=== PATIENT | female | born 1945 | race Caucasian/White ===

== ENCOUNTER 2018-06-04 14:13 | Inpatient (IN) | payer MEDICARE, OTHER ==
[~2018-06-04 14:13] MED LIST: ISOVUE-370 76%-LOCM 1 ML ONE
[2018-06-04 15:33] LABS: #Basophils 0.1 thou/uL (0.0-0.2); #Eosinphils 0.3 thou/uL (0.0-0.7); #Lymphocytes 1.2 thou/uL (1.20-3.40); #Monocytes 0.5 thou/uL (0.11-0.59); %Eosinophils 5.3 % (0.0-10.0); %Lymphocytes 24.5 % (21.0-51.0); %Monocytes 9.6 % (0.0-10.0); %Neutrophils 59.6 % (42.0-75.0); Hemoglobin 15.3 g/dL (12.0-16.0); Mean Corpuscular HGB CONC 35.1 g/dL (32.0-36.0); Mean Corpuscular Hemoglobin 32.4 pg (27.0-31.0); Mean Corpuscular Volume 92.2 fL (78.0-98.0); Mean Platelet Volume 6.6 fL (7.4-10.4); Platelet Count 355 thou/uL (130-400); RBC Distribution Width 12.4 % (11.5-14.5); Red Blood Cell (RBC) Count 4.71 mill/uL (4.20-5.40)
[2018-06-04 15:55] LABS: ALT (SGPT) 21 U/L (8-55); AST (SGOT) 24 U/L (5-34); Albumin 4.2 g/dL (3.4-4.8); Alkaline Phosphatase 50 U/L (40-150); Anion Gap 15 mmol/L (10-20); BUN (Urea Nitrogen) 19 mg/dL (9.8-20.1); Bilirubin, Total 0.3 mg/dL (0.2-1.2); Calc. Creatinine Clearance 0 mL/min (70-130); Carbon Dioxide 27 mmol/L (23-31); Chloride 104 mmol/L (98-107); Estimated GFR-MDRD 69; Globulin 3.1 g/dL (2.4-3.5); Glucose 90 mg/dL (83-110); Potassium 3.6 mmol/L (3.5-5.1); Protein, Total 7.3 g/dL (6.0-8.3); Sodium 142 mmol/L (136-145)
--- NOTE | 2018-06-04 15:55 | RAD ---
LEFT KNEE FOUR VIEWS: HISTORY: Pain. COMPARISON: None. FINDINGS: No fracture. No malalignment. There is narrowing of the lateral compartment and large osteophyte fo rmation. Small joint effusion. IMPRESSION: Moderate to severe lateral compartment degenerative disease. POS: [facility]
--- NOTE | 2018-06-04 15:58 | CT ---
CT BRAIN WITHOUT CONTRAST: 06/04/18 HISTORY: Left leg numbness. FINDINGS: There are changes of chronic small vessel ischemic disease in the periventricular white matter. No ev idence of acute infarct, hemorrhage, midline shift or abnormal extra-axial fluid collections are seen . the ventricular size is appropriate and the basilar cisterns patent. The bony calvarium is intact. There is mild mucosal disease in the right posterior ethmoid air cells. IMPRESSION: No CT evidence of acute intracranial process. POS: [facility]
--- NOTE | 2018-06-04 17:50 | CT ---
CT ARTERIOGRAM LEFT KNEE WITH IV CONTRAST AND 3D MIP IMAGIN06/04/18 HISTORY: Left leg pain and numbness. FINDINGS: CT arteriogram exam was performed from the level of the mid thigh to the mid marquez. Good contrast flow was demonstrated with in the popliteal artery to the trifurcation and into the proximal portions of the lower leg arteries. No evidence of stenosis, thrombus, embolus, or aneurysm. Moderate degenerativ e changes of the knee are apparent. Just posterior to the posterior horn lateral meniscus, is a smoothly marginated vertically oriented o earnestine ossification measuring up to 0.7 cm in greatest length. IMPRESSION: Normal CTA appearance of the left popliteal artery without aneurysm or thrombus. Degenerative changes left knee with intracapsular loose body posterior aspect of the lateral joint co mpartment. POS: [facility]
[2018-06-04] MEDS ORDERED: Nitroglycerin 2% Ointment 1 INCH/1 GM Packet ONE (18:04)
[2018-06-04] MEDS ORDERED: cloNIDine 0.1 MG TAB ONE (18:50)
[2018-06-04 21:55] VITALS: BMI 27.6
[2018-06-04] MEDS ORDERED: HYDROcodone/Acetaminophen 5/325 mg Tablet PO PRN ×2 (22:46)
[2018-06-04] MEDS ORDERED: Ondansetron HCl/PF 4 MG/2 ML Vial IVP PRN (22:46)
[2018-06-04] MEDS ORDERED: Acetaminophen 325 MG TAB PO PRN (22:46)
[2018-06-04] MEDS ORDERED: Ondansetron ODT 4 MG TAB SL PRN (22:46)
--- NOTE | 2018-06-05 09:35 | MRI ---
MRI BRAIN WITHOUT CONTRAST: History: CVA. Left leg tingling and inability to move left foot. Technique: Multiplanar, multisequence noncontrast enhanced MRI of the brain obtained. FINDINGS/IMPRESSION: Images demonstrate diffuse cortical atrophy and deep white matter ischemic changes. Images demonstrate an area of acute stroke with diffusion restrictions seen in the right posterior lora perior frontal gyrus extending into the medial aspect of the right precentral sulcus. This is compati ble with a small area of right posterior frontal stroke. No other acute abnormalities seen. POS: [facility]
[2018-06-05] MEDS ORDERED: Aspirin 325 MG TAB PO SCH (11:00)
--- NOTE | 2018-06-05 12:07 | HP ---
CHIEF COMPLAINT: Left leg numbness. HISTORY OF PRESENT ILLNESS: Ms. Valadez is a 73-year-old female with past medical history of hypertension, hyperlipidemia, who came because of left leg numbness and on Monday, that was about 2 days ago, the patient woke up in the early interventionist around 3:00 a.m. and found her weakness in the left hand. She was not able to hold a cup because she dropped the cup and she could not pick it up due to lack of coordination. She wanted to go and lie down on the couch, but before she could reach the couch, she slumped to the floor and lay on the floor for a few hours before she went onto the couch. Since that time the patient has been having left leg numbness, tingling and unable to move the toes of the left foot. So the patient decided to come to the hospital. In the ER, the patient was evaluated, had a normal CT scan of the brain. The patient's blood pressure was elevated. She was given clonidine. So in view of the left-sided weakness as well as left leg numbness the patient is admitted to rule out CVA. Currently, the patient does not have left hand weakness though she still has left leg numbness. PAST MEDICAL HISTORY: 1. Hypertension. 2. Hormone replacement therapy. 3. History of sleep apnea. PAST SURGICAL HISTORY: 1. Status post hysterectomy. 2. Status post appendectomy. 3. Status post dilatation of esophagus. CURRENT MEDICATIONS: Patient is on metoprolol 50 mg b.i.d., Estradiol 2 mg daily. amioloride with hydrochlorothiazide 5/50 daily, potassium KCl 20 mEq daily. Also uses an inhaler, ProAir for shortness of breath and she uses a nasal spray , Flonase. REVIEW OF SYSTEMS: CARDIOVASCULAR: No chest pain or shortness of breath. RESPIRATORY: No fever or cough. GASTROINTESTINAL: No nausea or vomiting. No abdominal pain. GENITOURINARY: No dysuria or hematuria. CENTRAL NERVOUS SYSTEM: The patient has left leg numbness. PHYSICAL EXAMINATION: GENERAL: The patient is alert, awake, oriented x3. VITAL SIGNS: Temperature 98, pulse 80, respirations 20, blood pressure initially 180/90. HEENT: Head is normocephalic and atraumatic. Pupils are equal and reactive. Nasopharynx is pale and dry. Hard and soft palate, no lesions. SKIN: Turgor decreased. NECK: Supple. No jugular venous distention. LUNGS: Clear to auscultation. No rales, no rhonchi. ABDOMEN: Soft, no distention, no tenderness. No organomegaly. Bowel sounds heard. RECTAL: Deferred. DIGITAL PROJECT COORDINATOR: The patient is alert, awake, oriented x3. Deep tendon reflexes 2+ bilaterally. Plantar downgoing. Sensory is decreased below the left knee. LABORATORY AND X-RAY FINDINGS: CBC shows WBC 5, hemoglobin 15, hematocrit 43, platelets 355. Metabolic panel; sodium 140, potassium 3.6, chloride 104, CO2 of 25, urea nitrogen 19, creatinine 0.8, glucose 90. EKG shows normal sinus rhythm, no acute ST-T wave changes seen. CT scan of the brain; no CT evidence of acute intracranial process. Knee x-ray; moderate to severe lateral compartment degenerative joint disease seen. CTA of the lower extremity showed normal CT appearance of the left popliteal artery. ASSESSMENT: 1. Left-sided weakness and left leg numbness, rule out cerebrovascular accident. 2. Hypertension, uncontrolled. 3. Hormone replacement. 4. History of chronic rhinitis. PLAN: 1. Vital signs q.4 hours. 2. Activity as tolerated. 3. Allergies: No known drug allergies. 4. Hep-Lock. 5. Aspirin 325 mg daily. 6. Continue home medications. 7. Clonidine 0.1 q.6h. p.r.n. for systolic above 180. 8. We will obtain MRI of the brain with and without contrast. [facility]
[2018-06-05] MEDS ORDERED: Multivitamin W/ Minerals 1 TAB PO SCH (12:30)
[2018-06-05] MEDS ORDERED: Hydrochlorothiazide 25 MG TAB PO SCH (12:30)
[2018-06-05] MEDS ORDERED: Potassium Chloride 20 MEQ TAB PO SCH (12:30)
[2018-06-05] MEDS ORDERED: Estradiol 1 MG TAB PO SCH (13:00)
--- NOTE | 2018-06-05 14:39 | ULT ---
BILATERAL CAROTID DUPLEX ULTRASOUND: History CVA. TECHNIQUE: Wayne scale ultrasound with color flow and spectral Doppler imaging of the extracranial carotid artery systems was performed bilaterally. FINDINGS: There is plaque formation predominantly on the right. The peak systolic velocity in the right ICA measures 68 cm/s with an end-diastolic velocity of 17 cm/ s and a systolic ratio of 0.67. The peak systolic velocity in the left ICA measures 61 cm/s with an end-diastolic velocity of 13 cm/s and a systolic ratio of 0.54. Flow in both vertebral arteries remains antegrade. IMPRESSION: No evidence of hemodynamically significant stenosis. POS: [facility]
[2018-06-05] MEDS ORDERED: Aspirin 81 mg Enteric Coated Tablet PO SCH (18:15)
[2018-06-05] MEDS ORDERED: Acetaminophen 500 MG TAB PO PRN (18:51)
[2018-06-05] MEDS ORDERED: Loperamide HCl 2 MG CAP PO PRN (20:11)
--- NOTE | 2018-06-05 21:19 | CON ---
DATE OF CONSULTATION: 06/05/2018 NEUROLOGY CONSULTATION CONSULTING PHYSICIAN: Dr. Webster. IMPRESSION: 1. Right frontal stroke. 2. Hypertension. PLAN: 1. Aspirin 81 mg per day. 2. Statin of your choice. 3. Patient will be discharged home tomorrow. Ms. Valadez is a 73-year-old woman who lives alone in her own home. She developed acute left-side d weakness 4 days ago. She did not seek medical care acutely. She worked herself around the house, but had difficulty maintaining her balance. She subsequently decided to seek medical care and was br ought in. Her MRI of the brain revealed an acute right frontal stroke. Laboratory studies were unre markable. A carotid ultrasound does not show any stenosis. Echocardiogram is pending. She does not have any cardiac history. PAST MEDICAL HISTORY: Hypertension. ALLERGIES: As per chart. SOCIAL HISTORY: No tobacco or alcohol use. FAMILY HISTORY: Noncontributory. REVIEW OF SYSTEMS: No complaint of headache, nausea, vomiting, vertigo, chest pain, shortness of manny ath, or incontinence. PHYSICAL EXAMINATION: GENERAL: She is a well-nourished elderly lady in no distress. VITAL SIGNS: Stable. She is afebrile. HEENT: Pupils equal and reactive. Conjunctivae are clear. Oropharynx clear. NECK: Supple. EXTREMITIES: No cyanosis, clubbing or edema. NEUROLOGIC: She is alert and cooperative. Her speech is fluent and clear. Cranial nerves II-XII ar e intact. Motor exam showed only subtle weakness in the left lower extremity. She can walk independ ently with a slightly widened based gait and a limp. Sensation was intact to light touch. No abnorm al movements were seen. IMAGING DATA: EKG shows sinus rhythm. SUMMARY: A 73-year-old woman with a thrombotic stroke in the right frontal region with resolving lef t-sided weakness. We can proceed with preventative therapy and she will likely be doing well enough to go home for independent living.
[2018-06-06 05:53] LABS: Cardiac Risk 3.1 (Less than 4.5)
[2018-06-06] MEDS: Multivitamin W/ Minerals 1 TAB PO SCH (08:59)
[2018-06-06] MEDS: Potassium Chloride 20 MEQ TAB PO SCH (08:59)
[2018-06-06] MEDS ORDERED: Aspirin 325 MG TAB PO SCH (09:00)
[2018-06-06] MEDS ORDERED: Estradiol 1 MG TAB PO SCH (09:00)
[2018-06-06] MEDS: Aspirin 81 mg Enteric Coated Tablet PO SCH (09:01)
[2018-06-06] MEDS: Hydrochlorothiazide 25 MG TAB PO SCH ×3 (09:05→11:48)
[2018-06-06] MEDS: Acetaminophen 325 MG TAB PO PRN (23:05)
[2018-06-07] MEDS: Hydrochlorothiazide 25 MG TAB PO SCH (08:29)
[2018-06-07] MEDS: Multivitamin W/ Minerals 1 TAB PO SCH (08:29)
[2018-06-07] MEDS: Estradiol 1 MG TAB PO SCH (08:30)
[2018-06-07] MEDS: Potassium Chloride 20 MEQ TAB PO SCH (08:30)
[2018-06-07] MEDS: Aspirin 81 mg Enteric Coated Tablet PO SCH (08:30)
[2018-06-07] MEDS ORDERED: Lisinopril 10 MG TAB PO SCH (13:45)
[2018-06-07] MEDS ORDERED: Amlodipine 5 MG TAB PO SCH (15:00)
[2018-06-07] MEDS ORDERED: cloNIDine 0.1 MG TAB PO PRN (15:17)
[2018-06-07] MEDS ORDERED: Atorvastatin Calcium 20 MG TAB PO SCH (23:15)
[2018-06-08] MEDS: Acetaminophen 325 MG TAB PO PRN (03:58)
[2018-06-08] MEDS ORDERED: Lisinopril 10 MG TAB PO SCH (09:00)
[2018-06-08] MEDS ORDERED: Amlodipine 5 MG TAB PO SCH (09:00)
[2018-06-08] MEDS: Hydrochlorothiazide 25 MG TAB PO SCH (09:54)
[2018-06-08] MEDS: Estradiol 1 MG TAB PO SCH (09:54)
[2018-06-08] MEDS: Multivitamin W/ Minerals 1 TAB PO SCH (09:55)
[2018-06-08] MEDS: Potassium Chloride 20 MEQ TAB PO SCH (09:55)
[2018-06-08] MEDS: Aspirin 81 mg Enteric Coated Tablet PO SCH (09:55)
[2018-06-08 10:50] VITALS: BP 123/67; TEMP 97.5
[2018-06-08] MEDS ORDERED: Atorvastatin Calcium 20 MG TAB PO SCH (21:00)
--- NOTE | 2018-06-09 11:40 | EKG ---
Test Reason : WEAKNESS Blood Pressure : / mmHG Vent. Rate : 080 BPM Atrial Rate : 080 BPM P-R Int : 192 ms QRS Dur : 072 ms QT Int : 372 ms P-R-T Axes : 076 001 018 degrees QTc Int : 429 ms Normal sinus rhythm with sinus arrhythmia Normal ECG Confirmed by AMAN SANCHES DO ([id number]), website/blog editor AVEL LEE ([id number]) on 06/09/2018 11:39:52 AM Referred By: PEGGY SANCHES Confirmed By:AMAN SANCHES DO
--- NOTE | 2018-06-11 10:53 | DIS ---
DATE OF ADMISSION: 06/04/2018 DATE OF DISCHARGE: 06/08/2018 ADMITTING DIAGNOSES: 1. Left-sided weakness and left leg numbness, rule out cerebrovascular accident. 2. Hypertension, uncontrolled. 3. Hormone replacement. 4. History of chronic rhinitis. FINAL DIAGNOSES: 1. Left-sided weakness secondary to right frontal stroke, improving. 2. Hypertension, uncontrolled, improved. 3. Hormone replacement therapy. BRIEF SUMMARY OF HOSPITAL COURSE: Ms. Valadez is a 73-year-old female admitted because of left-sided weakness and numbness. Initial CT scan of the brain did not show any acute infarct. The patient admitted to rule out CVA. An MRI of the brain was done, which showed right frontal stroke. The patient consulted by stroke team and Neurology has seen the patient. The patient was seen by neurology and his impression was pt has right frontal stroke suggested statin and aspirin. An echocardiogram was done, which showed normal LV function with ejection fraction of 55%. patient was started on physical therapy. She is able to ambulate with walker. Her blood pressure was uncontrolled, so her medications were adjusted. She was started on amlodipine 5 mg daily, after which her blood pressure was controlled. The patient was also started on statin, Lipitor 20 mg daily. In view of improvement, patient is being discharged to home. At the time of discharge, she was stable. Her vital signs were stable. Lungs were clear. Heart sounds are regular. Abdomen is soft, nontender. Bowel sounds present. DISCHARGE MEDICATIONS: Include amiloride with hydrochlorothiazide 5/50 daily, KCl 20 mEq daily, estradiol 2 mg daily, metoprolol 100 mg daily, multivitamin daily, amlodipine 5 mg daily, aspirin 81 mg daily, Lipitor 20 mg daily. DISCHARGE INSTRUCTIONS: The patient will have Home Health to help her to do home health PT. FOLLOWUP: The patient will come for followup in 2 weeks. [facility]
== END 2018-06-08 17:11 | disposition home health service (06) | DRG 65 ==
LOC: ERS 14:13 → 2SE 19:38 → OBSVTOIN 19:38
PROVIDERS: ADMIT Internal Medicine; ATTEND Internal Medicine
DX: I63.30 Cerebral infarction due to thrombosis of unspecified cerebral artery (principal); G81.94 Hemiplegia, unspecified affecting left nondominant side; R29.702 NIHSS score 2; M17.12 Unilateral primary osteoarthritis, left knee; I10 Essential (primary) hypertension; J31.0 Chronic rhinitis; E78.5 Hyperlipidemia, unspecified; Z79.890 Hormone replacement therapy
CPT/HCPCS: 36415; 70450; 70551; 80053; 80061; 85025; 93005; 93306; 93880; A4216; G8978-GP-CJ; G8979-GP-CJ; G8980-GP-CJ; G8987-GO-CI; G8988-GO-CI; G8989-GO-CI; G8996-GN-CI; G8997-GN-CI

== ENCOUNTER 2023-11-09 08:11 | Inpatient (IN) | payer MEDICARE, OTHER ==
[2023-11-09] MEDS ORDERED: Acetaminophen 500 MG TAB ONE (08:38)
[2023-11-09] MEDS ORDERED: Acetaminophen 325 MG TAB ONE (09:24)
[2023-11-09 10:06] LABS: #Monocytes 0.6 thou/uL (0.11-0.59); #Neutrophils 3.9 thou/uL (1.40-6.50); %Basophils 0.4 % (0.0-1.0); %Eosinophils 0.2 % (0.0-10.0); %Lymphocytes 14.2 % (21.0-51.0); %Monocytes 10.8 % (0.0-10.0); Hematocrit 35.5 % (36.0-47.0); Hemoglobin 11.5 g/dL (12.0-16.0); Mean Corpuscular HGB CONC 32.4 g/dL (32.0-36.0); Mean Corpuscular Hemoglobin 27.4 pg (27.0-31.0); Mean Corpuscular Volume 84.5 fl (78.0-98.0); Mean Platelet Volume 10.2 fL (7.4-10.4); Platelet Count 511 10x3/uL (130-400); RBC Distribution Width 16.7 % (11.5-14.5); White Blood Cell (WBC) Count 5.3 10x3/uL (4.8-10.8)
[2023-11-09 10:46] LABS: ALT (SGPT) 8 U/L (8-55); AST (SGOT) 20 U/L (5-34); Albumin 3.7 g/dL (3.4-4.8); Alkaline Phosphatase 64 U/L (40-110); Anion Gap 11 mmol/L (10-20); BUN (Urea Nitrogen) 13 mg/dL (9.8-20.1); Bilirubin, Total 1.2 mg/dL (0.2-1.2); CK (CPK) 51 U/L (29-168); Calc. Creatinine Clearance 0 mL/min (70-130); Calcium 9.3 mg/dL (7.8-10.44); Carbon Dioxide 28 mmol/L (23-31); Chloride 104 mmol/L (98-107); Estimated GFR 84; Glucose 104 mg/dL (83-110); Potassium 3.2 mmol/L (3.5-5.1); Protein, Total 6.7 g/dL (5.8-8.1); Sodium 140 mmol/L (136-145)
[2023-11-09 10:50] LABS: Troponin I 0.013 ng/mL (< 0.028)
[2023-11-09 11:05] LABS: Bilirubin Negative (Negative); Blood, Urine Negative (Negative); Glucose, Urine (Dipstick) Negative (Negative); Ketone, Urine Negative (Negative); Leukocyte Small (Negative); Nitrite Positive (Negative); Protein, Urine (Dipstick) Negative (Neg-Trace); Urobilinogen 0.2 mg/dL (Less than 2)
[2023-11-09 11:25] LABS: Clarity Hazy (Clear)
[2023-11-09 11:26] LABS: Bacteria/HPF 4+ HPF (None Seen); CAUTI Indications for Culture Alt mental st,lethar; RBC/HPF 0-3 HPF (0-3); Specific Gravity, Urine 1.005 (1.002-1.036); Squamous Epithelial 0-3 HPF (0-3)
[2023-11-09 11:27] LABS: Trichomonas/HPF None Seen HPF (None Seen); Urine Culture Reflex No No; Yeast-Budding None Seen HPF (None Seen); Yeast-Hyphae None Seen HPF (None Seen)
[2023-11-09] MEDS ORDERED: Sodium Chloride 0.9% 100 ML ONE (11:46)
[2023-11-09] MEDS ORDERED: cefTRIAXone (ROCEPHIN) 1 GM VIAL ONE (11:46)
[2023-11-09] MEDS ORDERED: Sertraline 100 MG TAB PO SCH (13:26)
[2023-11-09] MEDS ORDERED: Ondansetron PF 4 MG/2 ML Vial IVP PRN (13:29)
[2023-11-09] MEDS ORDERED: Sertraline 25 MG TAB PO SCH (13:30)
[2023-11-09] MEDS ORDERED: traMADol HCl 50 MG TAB PO PRN (13:30)
[2023-11-09] MEDS ORDERED: Potassium Chloride 20 MEQ TAB PO SCH (13:45)
[2023-11-09 15:46] VITALS: BMI 21.9
[2023-11-09] MEDS: Acetaminophen 325 MG TAB PO PRN (20:09)
[2023-11-10 06:51] LABS: Anion Gap 8 mmol/L (10-20); BUN (Urea Nitrogen) 13 mg/dL (9.8-20.1); Calc. Creatinine Clearance 66 mL/min (70-130); Calcium 8.2 mg/dL (7.8-10.44); Carbon Dioxide 27 mmol/L (23-31); Chloride 105 mmol/L (98-107); Estimated GFR 89; Glucose 85 mg/dL (83-110); Magnesium 1.9 mg/dL (1.6-2.6); Potassium 3.4 mmol/L (3.5-5.1); Sodium 137 mmol/L (136-145)
[2023-11-10] MEDS: Enoxaparin 40 MG (0.4 mL) SYRINGE SC SCH (08:25)
[2023-11-10] MEDS: Sertraline 25 MG TAB PO SCH (08:25)
[2023-11-10] MEDS ORDERED: Sertraline 100 MG TAB PO SCH (09:00)
[2023-11-10] MEDS ORDERED: Prazosin HCl 1 MG CAP PO SCH (10:30)
[2023-11-10] MEDS: Bisacodyl 5 MG TAB PO PRN (10:59)
[2023-11-10] MEDS: cefTRIAXone\\ROCEPHIN 1 GM in Sodium Chloride 0.9% 100 ML IVPB SCH (11:55)
[2023-11-10] MEDS: Prazosin HCl 1 MG CAP PO SCH ×2 (14:22→21:13)
[2023-11-10] MEDS: Acetaminophen 325 MG TAB PO PRN (21:14)
[2023-11-11] MEDS: Acetaminophen 325 MG TAB PO PRN ×2 (08:28→20:09)
[2023-11-11] MEDS: Sertraline 25 MG TAB PO SCH (08:29)
[2023-11-11] MEDS: Prazosin HCl 1 MG CAP PO SCH ×3 (08:29→20:09)
[2023-11-11] MEDS: Enoxaparin 40 MG (0.4 mL) SYRINGE SC SCH (08:29)
[2023-11-11] MEDS ORDERED: Potassium Chloride 20 MEQ TAB PO SCH (10:45)
[2023-11-11] MEDS: cefTRIAXone\\ROCEPHIN 1 GM in Sodium Chloride 0.9% 100 ML IVPB SCH (11:07)
[2023-11-11 12:03] LABS: #Eosinphils 0.1 thou/uL (0.0-0.7); #Monocytes 0.5 thou/uL (0.11-0.59); %Basophils 0.2 % (0.0-1.0); %Eosinophils 1.6 % (0.0-10.0); %Lymphocytes 16.8 % (21.0-51.0); %Neutrophils 68.9 % (42.0-75.0); Hematocrit 33.4 % (36.0-47.0); Hemoglobin 10.7 g/dL (12.0-16.0); Mean Corpuscular Hemoglobin 27.6 pg (27.0-31.0); Mean Corpuscular Volume 86.3 fl (78.0-98.0); Mean Platelet Volume 10.6 fL (7.4-10.4); Platelet Count 452 10x3/uL (130-400); RBC Distribution Width 16.9 % (11.5-14.5); Red Blood Cell (RBC) Count 3.87 mill/uL (4.20-5.40); White Blood Cell (WBC) Count 4.3 10x3/uL (4.8-10.8)
[2023-11-11 12:34] LABS: Anion Gap 10 mmol/L (10-20); BUN (Urea Nitrogen) 17 mg/dL (9.8-20.1); Calc. Creatinine Clearance 59 mL/min (70-130); Calcium 8.3 mg/dL (7.8-10.44); Carbon Dioxide 27 mmol/L (23-31); Chloride 102 mmol/L (98-107); Estimated GFR 84; Glucose 101 mg/dL (83-110); Magnesium 1.9 mg/dL (1.6-2.6); Potassium 3.4 mmol/L (3.5-5.1); Sodium 136 mmol/L (136-145)
[2023-11-11] MEDS: traZODone HCl 50 MG TAB PO PRN (20:09)
[2023-11-12 07:47] LABS: #Eosinphils 0.1 thou/uL (0.0-0.7); #Monocytes 0.3 thou/uL (0.11-0.59); #Neutrophils 1.4 thou/uL (1.40-6.50); %Basophils 0.4 % (0.0-1.0); %Eosinophils 2.9 % (0.0-10.0); %Lymphocytes 33.1 % (21.0-51.0); %Monocytes 11.5 % (0.0-10.0); %Neutrophils 51.7 % (42.0-75.0); Hematocrit 34.2 % (36.0-47.0); Hemoglobin 10.7 g/dL (12.0-16.0); Mean Corpuscular HGB CONC 31.3 g/dL (32.0-36.0); Mean Corpuscular Hemoglobin 27.4 pg (27.0-31.0); Mean Corpuscular Volume 87.7 fl (78.0-98.0); Platelet Count 477 10x3/uL (130-400); RBC Distribution Width 17.3 % (11.5-14.5); White Blood Cell (WBC) Count 2.8 10x3/uL (4.8-10.8)
[2023-11-12] MEDS: Enoxaparin 40 MG (0.4 mL) SYRINGE SC SCH (07:59)
[2023-11-12] MEDS: Sertraline 25 MG TAB PO SCH (08:00)
[2023-11-12] MEDS: Prazosin HCl 1 MG CAP PO SCH ×3 (08:00→20:30)
[2023-11-12] MEDS: Acetaminophen 325 MG TAB PO PRN ×3 (08:00→20:30)
[2023-11-12 08:05] LABS: Anion Gap 13 mmol/L (10-20); BUN (Urea Nitrogen) 13 mg/dL (9.8-20.1); Calc. Creatinine Clearance 61 mL/min (70-130); Calcium 8.6 mg/dL (7.8-10.44); Carbon Dioxide 28 mmol/L (23-31); Chloride 104 mmol/L (98-107); Estimated GFR 88; Glucose 116 mg/dL (83-110); Potassium 3.7 mmol/L (3.5-5.1); Sodium 141 mmol/L (136-145)
[2023-11-12] MEDS ORDERED: Non-Formulary Item 1 EACH (Sertraline Hcl [Zoloft] 50 MG Tablet) PO SCH (09:00)
[2023-11-12] MEDS: cefTRIAXone\\ROCEPHIN 1 GM in Sodium Chloride 0.9% 100 ML IVPB SCH (12:17)
[2023-11-12] MEDS: traZODone HCl 50 MG TAB PO PRN (20:30)
[2023-11-12] MEDS: Metoprolol Tartrate 25 MG TAB PO SCH (20:30)
[2023-11-13 07:06] LABS: #Eosinphils 0.1 thou/uL (0.0-0.7); #Monocytes 0.4 thou/uL (0.11-0.59); #Neutrophils 1.5 thou/uL (1.40-6.50); %Basophils 0.3 % (0.0-1.0); %Eosinophils 3.6 % (0.0-10.0); %Lymphocytes 38.5 % (21.0-51.0); %Monocytes 11.8 % (0.0-10.0); %Neutrophils 45.8 % (42.0-75.0); Hemoglobin 10.3 g/dL (12.0-16.0); Mean Corpuscular HGB CONC 32.2 g/dL (32.0-36.0); Mean Corpuscular Hemoglobin 27.9 pg (27.0-31.0); Mean Corpuscular Volume 86.7 fl (78.0-98.0); Mean Platelet Volume 10.4 fL (7.4-10.4); Platelet Count 496 10x3/uL (130-400); RBC Distribution Width 17.2 % (11.5-14.5); Red Blood Cell (RBC) Count 3.69 mill/uL (4.20-5.40); White Blood Cell (WBC) Count 3.3 10x3/uL (4.8-10.8)
[2023-11-13 07:36] LABS: Anion Gap 9 mmol/L (10-20); BUN (Urea Nitrogen) 21 mg/dL (9.8-20.1); Calc. Creatinine Clearance 61 mL/min (70-130); Calcium 8.6 mg/dL (7.8-10.44); Carbon Dioxide 30 mmol/L (23-31); Chloride 105 mmol/L (98-107); Estimated GFR 87; Glucose 85 mg/dL (83-110); Potassium 4.1 mmol/L (3.5-5.1); Sodium 140 mmol/L (136-145)
[2023-11-13] MEDS: Enoxaparin 40 MG (0.4 mL) SYRINGE SC SCH (08:53)
[2023-11-13] MEDS: Metoprolol Tartrate 25 MG TAB PO SCH ×2 (08:53→21:52)
[2023-11-13] MEDS: Prazosin HCl 1 MG CAP PO SCH ×3 (08:53→21:53)
[2023-11-13] MEDS: Sertraline 25 MG TAB PO SCH (08:53)
[2023-11-13] MEDS: cefTRIAXone\\ROCEPHIN 1 GM in Sodium Chloride 0.9% 100 ML IVPB SCH (13:11)
[2023-11-13] MEDS: Bisacodyl 5 MG TAB PO PRN (14:13)
[2023-11-13] MEDS: traZODone HCl 50 MG TAB PO PRN (22:03)
[2023-11-14] MEDS: Acetaminophen 325 MG TAB PO PRN ×2 (02:16→09:37)
[2023-11-14 04:15] LABS: #Eosinphils 0.2 thou/uL (0.0-0.7); #Monocytes 0.6 thou/uL (0.11-0.59); #Neutrophils 1.8 thou/uL (1.40-6.50); %Basophils 0.2 % (0.0-1.0); %Eosinophils 3.7 % (0.0-10.0); %Lymphocytes 36.6 % (21.0-51.0); %Monocytes 14.1 % (0.0-10.0); %Neutrophils 45.2 % (42.0-75.0); Hematocrit 30.7 % (36.0-47.0); Hemoglobin 9.8 g/dL (12.0-16.0); Mean Corpuscular HGB CONC 31.9 g/dL (32.0-36.0); Mean Corpuscular Hemoglobin 27.7 pg (27.0-31.0); Mean Corpuscular Volume 86.7 fl (78.0-98.0); Mean Platelet Volume 10.4 fL (7.4-10.4); Platelet Count 472 10x3/uL (130-400); RBC Distribution Width 17.2 % (11.5-14.5); Red Blood Cell (RBC) Count 3.54 mill/uL (4.20-5.40)
[2023-11-14 04:44] LABS: Anion Gap 11 mmol/L (10-20); BUN (Urea Nitrogen) 23 mg/dL (9.8-20.1); Calc. Creatinine Clearance 61 mL/min (70-130); Calcium 8.2 mg/dL (7.8-10.44); Carbon Dioxide 28 mmol/L (23-31); Chloride 104 mmol/L (98-107); Estimated GFR 88; Glucose 86 mg/dL (83-110); Potassium 4.1 mmol/L (3.5-5.1); Sodium 139 mmol/L (136-145)
[2023-11-14] MEDS ORDERED: Multivit, Therapeutic 1 TAB PO SCH (09:00)
[2023-11-14] MEDS: Prazosin HCl 1 MG CAP PO SCH ×2 (09:37→15:53)
[2023-11-14] MEDS: Sertraline 25 MG TAB PO SCH (09:37)
[2023-11-14] MEDS: Bisacodyl 5 MG TAB PO PRN (09:37)
[2023-11-14] MEDS: Metoprolol Tartrate 25 MG TAB PO SCH (09:37)
[2023-11-14] MEDS: Enoxaparin 40 MG (0.4 mL) SYRINGE SC SCH (09:37)
[2023-11-14] MEDS: Metoprolol Tartrate 50 MG TAB PO SCH ×2 (09:40→09:45)
[2023-11-14] MEDS: cefTRIAXone\\ROCEPHIN 1 GM in Sodium Chloride 0.9% 100 ML IVPB SCH (13:12)
[2023-11-14 15:55] VITALS: BP 145/77; TEMP 97.5
[2023-11-14] MEDS ORDERED: Metoprolol Tartrate 50 MG TAB PO SCH (21:00)
== END 2023-11-14 17:25 | DRG 690 ==
LOC: ERS 08:11 → T4-A 14:41 → OBSVTOIN 11-10 16:30
PROVIDERS: ADMIT Internal Medicine; ATTEND Hospitalist
DX: N39.0 Urinary tract infection, site not specified (principal); E87.6 Hypokalemia; I10 Essential (primary) hypertension; Z88.8 Allergy status to other drugs, medicaments and biological substances; Z79.899 Other long term (current) drug therapy; Z79.82 Long term (current) use of aspirin; F41.9 Anxiety disorder, unspecified; F32.A Depression, unspecified; Z90.710 Acquired absence of both cervix and uterus; Z98.890 Other specified postprocedural states; Z82.49 Family history of ischemic heart disease and other diseases of the circulatory system; D64.9 Anemia, unspecified; G47.00 Insomnia, unspecified; I27.20 Pulmonary hypertension, unspecified
CPT/HCPCS: 36415; 70450; 71045; 72170; 80048; 80053; 81001; 82550; 83605; 83735; 84443; 84484; 85025; 87077; 87086; 87186; 93005; 94760; 96365; 96372; 96376; G0378; J0696; J1650; J3490